=== PATIENT | male | born 1960 | race Caucasian/White ===

== ENCOUNTER 2017-07-30 13:30 | Inpatient (IN) | payer OTHER ==
[2017-07-28 16:19] LABS: BASOPHILS % (AUTO) 0.5 % (0-1); EOSINOPHILS # (AUTO) 0.1 X10'3 (0-0.9); EOSINOPHILS % (AUTO) 1.7 % (0-6); LYMPHOCYTES # (AUTO) 1.7 X10'3 (1.1-4.8); LYMPHOCYTES % (AUTO) 26.4 % (21-51); MEAN CORPUSCULAR HEMOGLOBIN 31.3 PG (27.0-31.0); MEAN CORPUSCULAR HGB CONC 34.2 % (33.0-36.5); MEAN CORPUSCULAR VOLUME 91.4 FL (78-98); MEAN PLATELET VOLUME 7.8 FL (7.4-10.4); MONOCYTES # (AUTO) 0.5 X10'3 (0-0.9); MONOCYTES % (AUTO) 7.2 % (2-12); NEUTROPHILS # (AUTO) 4.1 X10'3 (1.8-7.7); NEUTROPHILS % (AUTO) 64.2 % (42-75); PRE OP HEMATOCRIT 40.8 % (42.0-52.0); PRE OP PLATELET COUNT 227 X10'3 (140-440); RED BLOOD COUNT 4.46 X10'6 (4.70-6.10); RED CELL DISTRIBUTION WIDTH 13.4 % (11.5-14.5)
[2017-07-28 16:33] LABS: CLARITY,URINE Clear (Clear); COLOR,URINE Yellow (Yellow); GLUCOSE, URINE Negative (Neg); KETONES,URINE Negative (Neg); LEUKOCYTE ESTERASE ,URINE Negative (Neg); NITRITES, URINE Negative (Neg); OCCULT BLOOD,URINE Negative (Neg); PH,URINE 5.5 (4.8-8.0); PROTEIN,URINE Negative (Neg)
[2017-07-28 16:49] LABS: ALBUMIN 4.3 G/DL (3.4-5.0); ALBUMIN/GLOBULIN RATIO 1.2 (1.1-1.5); ALKALINE PHOSPHATASE 83 IU/L (46-116); BLOOD UREA NITROGEN 14 MG/DL (7-18); BUN/CREATININE RATIO 17.1 (5.4-32.0); CALCIUM 9.2 MG/DL (8.5-10.1); CHLORIDE 103 MMOL/L (99-107); CREATININE 0.82 MG/DL (0.60-1.10); PRE OP ALT 19 U/L (30-65); PRE OP ANION GAP 5 (8-16); PRE OP AST 24 U/L (10-37); PRE OP BILIRUB, TOTAL 0.6 MG/DL (0.0-1.0); PRE OP GLUCOSE 91 MG/DL (70-104); PRE OP POTASSIUM 4.2 MMOL/L (3.4-5.1); PRE OP SODIUM 139 MMOL/L (135-145); TOTAL CARBON DIOXIDE 31.5 MMOL/L (24-32); eGFR > 90 ML/MIN
[2017-07-28 16:51] LABS: UA COLLECTION TYPE NON-SPECIFIED
[2017-07-28 17:01] LABS: PRE OP PROTIME 10.7 SECONDS (9.0-12.0)
[~2017-07-30] VITALS: Ht 180.3 cm; Wt 102.3 kg
[~2017-07-30 13:30] MED LIST: BUPR300T53 PO; ROSU10TA PO
[2017-08-03] VITALS (18 sets, daily range): BP systolic 93–149; BP diastolic 44–81
[2017-08-03] MEDS ORDERED: ringers solution, lacted 1,000 ML IV SCH ×2 (05:00→10:19)
[2017-08-03] MEDS ORDERED: famotidine 20mg tablet PO ONE (05:30)
[2017-08-03] MEDS ORDERED: ceFAZolin 2gm in dextrose, iso 100 ML IV ONE (05:30)
[2017-08-03] MEDS ORDERED: vancomycin inj 1,500 MG in normal saline 300ml IV soln IV ONE (05:30)
[2017-08-03] MEDS ORDERED: epiNEPHrine 1 mg/ml inj ONE (07:26)
[2017-08-03] MEDS ORDERED: vancomycin 1,000mg inj ONE (07:27)
[2017-08-03] MEDS ORDERED: ROPIVAcaine 0.5% (5mg/ml) 30ml vial ONE ×2 (07:27→09:20)
[2017-08-03] MEDS ORDERED: cloNIDine hcl/PF 100mcg/ml inj ONE ×2 (07:27→09:20)
[2017-08-03] MEDS ORDERED: LIDOcaine 1% (10mg/ml) 2ml vial ONE (08:14)
[2017-08-03] MEDS ORDERED: tranexamic acid inj. 1,000 MG in normal saline 100ml IV soln 90 ML IV ONE (09:05)
[2017-08-03] MEDS ORDERED: midazolam 2 mg/2 ml injection ONE (09:14)
[2017-08-03] MEDS ORDERED: HYDROmorphone inj. 0.5 MG/0.5 ML DISP.SYRIN IV PRN ×2 (09:20)
[2017-08-03] MEDS ORDERED: tetracaine 1% (10mg/ml) pres. free inj. ONE (09:20)
[2017-08-03] MEDS ORDERED: diphenhydrAMINE 25mg capsule PO PRN (09:20)
[2017-08-03] MEDS ORDERED: acetaminophen 325mg tablet PO PRN (09:20)
[2017-08-03] MEDS ORDERED: bisacodyl 10mg suppository rectal RC PRN (09:20)
[2017-08-03] MEDS ORDERED: ondansetron/PF 4mg/2ml inj IV PRN ×3 (09:20→10:20)
[2017-08-03] MEDS ORDERED: magnesium hydroxide 30ml (MOM) UD suspension PO PRN (09:20)
[2017-08-03] MEDS ORDERED: fentaNYL/PF 50MCG/1 ML 2ML syringe ONE (09:22)
[2017-08-03] MEDS ORDERED: MORPHINE SULFATE/PF 0.5 MG/ML 10ML AMPUL ONE (09:22)
[2017-08-03] MEDS ORDERED: MIDAZolam 1mg/ml 10ml vial ONE (09:22)
[2017-08-03] MEDS ORDERED: propofol inj 20 ML IV ONE ×2 (10:01→10:02)
[2017-08-03] MEDS ORDERED: ketorolac trometh. 30mg/ml inj. ONE (10:10)
[2017-08-03] MEDS ORDERED: naloxone 2mg/2ml inj 2 MG in normal saline 500ml IV soln 500 ML IV PRN (10:19)
[2017-08-03] MEDS ORDERED: proCHLORperazine 10 MG/2 ml inj IV PRN (10:20)
[2017-08-03] MEDS ORDERED: meperidine/PF 25mg/ml syringe IV PRN ×3 (10:20)
[2017-08-03] MEDS ORDERED: diphenhydrAMINE 50 mg/ml inj IV PRN (10:20)
[2017-08-03] MEDS: oxyCODONE/APAP 10/325mg tablet PO SCH ×3 (12:00→20:37)
[2017-08-03] MEDS: gabapentin 300mg capsule PO SCH ×2 (13:00→20:37)
[2017-08-03] MEDS: potassium cl 20mEq in 1/2 NS 1,000 ML IV SCH ×2 (14:10→17:17)
[2017-08-03] MEDS ORDERED: cefazolin/dext.iso 2gm/50ml 50 ML IV SCH (16:00)
[2017-08-03] MEDS: ceFAZolin 2gm in dextrose, iso 100 ML IV SCH (16:22)
[2017-08-03] MEDS: celeCOXIB 100mg capsule PO SCH (20:36)
[2017-08-03] MEDS: sennosides 8.6mg tablet PO SCH (20:37)
[2017-08-03] MEDS: ascorbic acid 500mg tablet PO SCH (20:37)
[2017-08-04] MEDS: potassium cl 20mEq in 1/2 NS 1,000 ML IV SCH ×3 (00:31→17:17)
[2017-08-04] MEDS: oxyCODONE/APAP 10/325mg tablet PO SCH ×6 (00:32→20:13)
[2017-08-04] MEDS: ceFAZolin 2gm in dextrose, iso 100 ML IV SCH (00:32)
[2017-08-04 02:00] VITALS: BP 109/64
[2017-08-04 05:00] VITALS: BP 104/52
[2017-08-04 05:23] LABS: BASOPHILS % (AUTO) 0.4 % (0-1); EOSINOPHILS # (AUTO) 0.2 X10'3 (0-0.9); EOSINOPHILS % (AUTO) 2.4 % (0-6); HEMATOCRIT 32.1 % (42.0-52.0); HEMOGLOBIN 10.9 g/dl (14.0-17.9); LYMPHOCYTES # (AUTO) 1.2 X10'3 (1.1-4.8); LYMPHOCYTES % (AUTO) 17.7 % (21-51); MEAN CORPUSCULAR HEMOGLOBIN 31.2 PG (27.0-31.0); MEAN CORPUSCULAR HGB CONC 33.9 % (33.0-36.5); MEAN CORPUSCULAR VOLUME 91.9 FL (78-98); MEAN PLATELET VOLUME 8.4 FL (7.4-10.4); MONOCYTES # (AUTO) 0.7 X10'3 (0-0.9); MONOCYTES % (AUTO) 10.1 % (2-12); NEUTROPHILS # (AUTO) 4.7 X10'3 (1.8-7.7); NEUTROPHILS % (AUTO) 69.4 % (42-75); PLATELET COUNT 180 X10'3 (140-440); RED BLOOD COUNT 3.49 X10'6 (4.70-6.10); RED CELL DISTRIBUTION WIDTH 13.4 % (11.5-14.5); WHITE BLOOD COUNT 6.7 X10'3 (4.5-11.0)
[2017-08-04 05:47] LABS: ANION GAP 5 (8-16); CHLORIDE 104 MMOL/L (99-107); POTASSIUM 3.9 MMOL/L (3.5-5.1); SODIUM 140 MMOL/L (135-145)
[2017-08-04] MEDS: ascorbic acid 500mg tablet PO SCH ×3 (08:07→20:13)
[2017-08-04] MEDS: multivitamins, therapeutics tablet PO SCH (08:07)
[2017-08-04] MEDS: aspirin 325mg tablet PO SCH (08:07)
[2017-08-04] MEDS: celeCOXIB 100mg capsule PO SCH ×3 (08:08→20:13)
[2017-08-04] MEDS: gabapentin 300mg capsule PO SCH ×3 (08:08→20:13)
[2017-08-04 11:41] VITALS: BP 114/55
[2017-08-04 16:18] VITALS: BP 141/77
[2017-08-04 18:00] VITALS: BP 126/75
[2017-08-04] MEDS: sennosides 8.6mg tablet PO SCH ×2 (20:13→21:00)
[2017-08-04] MEDS: diphenhydrAMINE 25mg capsule PO PRN (21:46)
[2017-08-04 22:00] VITALS: BP 132/47
[2017-08-05] MEDS: oxyCODONE/APAP 10/325mg tablet PO SCH ×7 (00:38→23:39)
[2017-08-05] MEDS: potassium cl 20mEq in 1/2 NS 1,000 ML IV SCH (01:17)
[2017-08-05 06:50] LABS: BASOPHILS % (AUTO) 0.2 % (0-1); EOSINOPHILS # (AUTO) 0.1 X10'3 (0-0.9); EOSINOPHILS % (AUTO) 1.9 % (0-6); HEMATOCRIT 32.4 % (42.0-52.0); HEMOGLOBIN 11.1 g/dl (14.0-17.9); LYMPHOCYTES # (AUTO) 0.8 X10'3 (1.1-4.8); LYMPHOCYTES % (AUTO) 10.3 % (21-51); MEAN CORPUSCULAR HEMOGLOBIN 31.5 PG (27.0-31.0); MEAN CORPUSCULAR HGB CONC 34.3 % (33.0-36.5); MEAN CORPUSCULAR VOLUME 91.8 FL (78-98); MEAN PLATELET VOLUME 8.7 FL (7.4-10.4); MONOCYTES # (AUTO) 0.8 X10'3 (0-0.9); MONOCYTES % (AUTO) 10.8 % (2-12); NEUTROPHILS # (AUTO) 5.7 X10'3 (1.8-7.7); NEUTROPHILS % (AUTO) 76.8 % (42-75); PLATELET COUNT 177 X10'3 (140-440); RED BLOOD COUNT 3.53 X10'6 (4.70-6.10); RED CELL DISTRIBUTION WIDTH 13.2 % (11.5-14.5); WHITE BLOOD COUNT 7.4 X10'3 (4.5-11.0)
[2017-08-05 07:00] VITALS: BP 153/65
[2017-08-05] MEDS: ascorbic acid 500mg tablet PO SCH ×2 (08:00→20:01)
[2017-08-05] MEDS: celeCOXIB 100mg capsule PO SCH ×2 (08:00→20:01)
[2017-08-05] MEDS ORDERED: buPROPion SR 150mg tablet PO PRN (08:00)
[2017-08-05] MEDS: aspirin 325mg tablet PO SCH (08:10)
[2017-08-05] MEDS: multivitamins, therapeutics tablet PO SCH (08:10)
[2017-08-05] MEDS: gabapentin 300mg capsule PO SCH ×3 (08:10→20:01)
[2017-08-05] MEDS: atorvastatin 20mg tablet PO SCH (08:11)
[2017-08-05 10:00] VITALS: BP 141/79
[2017-08-05] MEDS: oxyCODONE/APAP 10/325mg tablet PO PRN ×2 (11:00→16:02)
[2017-08-05 18:00] VITALS: BP 142/83
[2017-08-05] MEDS: diphenhydrAMINE 25mg capsule PO PRN (20:00)
[2017-08-05] MEDS: sennosides 8.6mg tablet PO SCH (20:01)
[2017-08-05 22:00] VITALS: BP 136/71
[2017-08-06] MEDS: oxyCODONE/APAP 10/325mg tablet PO SCH ×2 (03:57→09:21)
[2017-08-06 05:00] VITALS: BP 134/72
[2017-08-06] MEDS: oxyCODONE/APAP 10/325mg tablet PO PRN (06:04)
[2017-08-06 06:14] LABS: BASOPHILS % (AUTO) 0.3 % (0-1); EOSINOPHILS # (AUTO) 0.2 X10'3 (0-0.9); EOSINOPHILS % (AUTO) 2.2 % (0-6); HEMATOCRIT 30.7 % (42.0-52.0); HEMOGLOBIN 10.6 g/dl (14.0-17.9); LYMPHOCYTES # (AUTO) 0.9 X10'3 (1.1-4.8); LYMPHOCYTES % (AUTO) 12.2 % (21-51); MEAN CORPUSCULAR HEMOGLOBIN 31.3 PG (27.0-31.0); MEAN CORPUSCULAR HGB CONC 34.5 % (33.0-36.5); MEAN CORPUSCULAR VOLUME 90.8 FL (78-98); MEAN PLATELET VOLUME 8.1 FL (7.4-10.4); MONOCYTES # (AUTO) 0.9 X10'3 (0-0.9); MONOCYTES % (AUTO) 11.9 % (2-12); NEUTROPHILS # (AUTO) 5.3 X10'3 (1.8-7.7); NEUTROPHILS % (AUTO) 73.4 % (42-75); PLATELET COUNT 185 X10'3 (140-440); RED BLOOD COUNT 3.38 X10'6 (4.70-6.10); RED CELL DISTRIBUTION WIDTH 13.1 % (11.5-14.5); WHITE BLOOD COUNT 7.2 X10'3 (4.5-11.0)
[2017-08-06] MEDS: celeCOXIB 100mg capsule PO SCH (07:07)
[2017-08-06] MEDS: gabapentin 300mg capsule PO SCH (07:07)
[2017-08-06] MEDS: aspirin 325mg tablet PO SCH (07:07)
[2017-08-06] MEDS: ascorbic acid 500mg tablet PO SCH (07:07)
[2017-08-06] MEDS: atorvastatin 20mg tablet PO SCH (07:08)
[2017-08-06] MEDS: multivitamins, therapeutics tablet PO SCH (07:08)
[2017-08-06] MEDS ORDERED: ASPI-1 PO (08:48)
== END 2017-08-06 10:45 | disposition home or self-care (01) | DRG 470 ==
LOC: EDSTATUS 13:30 → PAS IN 08-03 07:50 → EDSTATUS 08-03 10:30 → ORTHO 4S 08-03 13:30
PROVIDERS: ADMIT Orthopaedic Surgery; ATTEND Orthopaedic Surgery
PROC: 3E0T3BZ Introduction of Anesthetic Agent into Peripheral Nerves and Plexi, Percutaneous Approach (ICD-10-PCS; 2017-08-03)
PROC: 0SRD0J9 Replacement of Left Knee Joint with Synthetic Substitute, Cemented, Open Approach (ICD-10-PCS; principal; 2017-08-03 09:19)
DX: M17.12 Unilateral primary osteoarthritis, left knee (principal); D62 Acute posthemorrhagic anemia; M21.162 Varus deformity, not elsewhere classified, left knee; E78.5 Hyperlipidemia, unspecified; F41.9 Anxiety disorder, unspecified; Z79.899 Other long term (current) drug therapy; Z79.01 Long term (current) use of anticoagulants; Z79.82 Long term (current) use of aspirin; Z87.891 Personal history of nicotine dependence
CPT/HCPCS: 36415; 71046; 73560; 80051; 80053; 81003; 85025; 85610; 85730; 86885; 86900; 86901; 87070; 93005; 97110; 97116; 97162; 97530; A6255; A6449; A6455; A7000; C1713; C1758; C1776; J0171; J0690; J0735; J1170; J1885; J2250; J2274; J2704; J2795; J3010; J3370; J3490; J7120; Q0163